=== PATIENT | male | born 1940 | race Caucasian/White ===

== ENCOUNTER → 2016-08-19 | Outpatient (CLI) | payer OTHER ==
[~2016-08-19] MED LIST: AMLODIPINE BESY10 MG PO; ASHWAGANDHA PO; ASPIR-TRIN325 MG PO; BIOTIN10 MG PO; CAPTOPRIL100 MG PO; CORICIDIN HBP1 EACH PO; FLAX OIL1000 MG PO; GARLIC OIL1000 MG PO; GLUCOSAMINE CH1 EAC2 PO; HYDROCHLOROTHIA25 M2 PO; LOPRESSOR100 M1 PO; OLIVE LEAF EXT250 MG PO; PROBIOTIC1 EAC1 PO; SALMON OIL 1,01 EACH PO; SUPER B COMPLE150 MG PO; VITAMIN E400 UNI2 PO
== END ==
LOC: RAD 12:36 → CAT 12:36
DX: K46.9 Unspecified abdominal hernia without obstruction or gangrene (principal); N20.0 Calculus of kidney; K76.0 Fatty (change of) liver, not elsewhere classified

== ENCOUNTER 2016-10-07 05:34 | Inpatient (IN) | payer OTHER ==
[~2016-10-07] VITALS: Ht 165.1 cm; Wt 93.4 kg
--- NOTE | ~2016-10-07 | EKG ---
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1940 Requested By: Nehemiah Castrejon Order Number: [id number] MD: Brijesh Haro Measurements Intervals [place] Rate: 77 P: 47 CT: 161 QRS: 21 QRSD: 93 T: -10 QT: 398 QTc: 451 Interpretive Statements Sinus rhythm Borderline repolarization abnormality Compared to ECG 04/19/2016 10:40:33 Sinus tachycardia no longer present Electronically Signed On 10-09-2016 10:50:13 CDT by Brijesh Haro [email or web address] <ELECTRONICALLY SIGNED> By: Brijesh Haro MD, [facility] 10/09/16 1050 01 01 Brijesh Haro MD, [facility] /EPI
--- NOTE | ~2016-10-07 | O ---
[facility] [place] [address] OPERATIVE REPORT Name: JULIETTE RUBIN Room #: 456-P [facility] IN M.R.#: [id number] Admission: 10/07/16 Attend Phys: Yomaira Jenkins MD, Discharge: Date of : 44 Report #: [id number] THIS REPORT FOR: //name// CC: Bob Jenkins DATE OF SERVICE: 10/07/2016 PREOPERATIVE DIAGNOSES: 1. Right upper quadrant incarcerated recurrent incisional ventral hernia. 2. Gastroesophageal reflux disease. 3. Hypertension. 4. Dyspnea on exertion. 5. Obesity with a body mass index of 31.95. POSTOPERATIVE DIAGNOSES: 1. Right upper quadrant incarcerated recurrent incisional ventral hernia. 2. Right chest wall incarcerated lung hernia. 3. Gastroesophageal reflux disease. 4. Hypertension. 5. Dyspnea on exertion. 6. Ischemic abdominal wall tissue. 7. Obesity with a body mass index of 31.95. PROCEDURES PERFORMED: 1. Exploratory laparotomy. 2. Extensive lysis of adhesions lasting 97 minutes. 3. Complex abdominal wall reconstruction with open repair of an incarcerated recurrent incisional ventral hernia of the right upper abdominal wall with mesh. 4. Open repair of a right chest wall/lung hernia with mesh. 5. Unilateral component separation of the abdominal wall on the right. 6. Debridement of ischemic/nonviable abdominal wall tissue. 7. Adjacent tissue transfer of the anterior abdominal wall for appropriate soft tissue coverage, ultimately measuring 26 x 22 cm in dimension (572 square cm). 8. This is a modifier 22 procedure for extreme difficulty of procedure taking into account greater than an hour and half lysis of adhesions as well as 2 separate discrete hernias in the right upper quadrant, one of the abdominal wall musculature and the second cephalad to that where the patient underwent a prior rib resection with herniation of lung through the defect. This was significantly difficult and caused the total operative time to be greater than 3-1/2 hours as opposed to the expected 60-90 minute procedure and was done in a patient with obesity and a BMI of greater than 30. SURGEON: Yomaira Jenkins MD FEATHER SHAPER: Jerome Gold MD [address] [address] OPERATIVE REPORT Name: JULIETTE RUBIN Room #: 456-P [facility] IN [facility]#: [id number] Admission: 10/07/16 Attend Phys: Yomaira Jenkins MD, Discharge: Date of : 44 Report #: [id number] ANESTHESIA: General endotracheal anesthesia. ESTIMATED BLOOD LOSS: Minimal (less than 20 mL). COMPLICATIONS: None appreciated. SPECIMENS: Ischemic abdominal wall tissue to pathology. INDICATIONS: The patient is a 76-year-old obese male who underwent a complex chest wall and upper abdominal wall hernia repair in April 2016. The patient's hernias were repaired with biologic mesh at that time and unbeknownst to the patient, he underwent 2 rib resections from the right lateral chest wall at the time of his prior operation. Since that time, he has had recurrent bulging of the right upper abdominal wall and underwent a CT scan of the chest and upper abdomen, which showed herniation of colon as well as possibly inferior lung through the respective hernia defects. As such, indication was for the above mentioned procedures today for definitive surgical care. PROCEDURE: After explaining the risks, benefits and alternatives of the procedure with the patient in detail in the preoperative holding area and obtaining written consent, the patient was brought to the operating room and placed supine on the operating room table. After conducting a thorough time-out procedure, verifying correct patient and procedure, the patient was given general endotracheal anesthesia. Once adequate anesthesia was obtained, SCDs were placed on the patient's bilateral lower extremities and he was given a preoperative dose of antibiotics in line with the SCIP protocol. The patient was then prepped and draped in the standard surgical sterile fashion after positioning him with a bump onto the right lateral flank for exposure. A #10 bladed scalpel was now used to create a curvilinear incision following his prior incision site from the right lateral chest wall, anterior over the right upper quadrant. I did carry this incision site 5 cm more medial as his palpable defect warranted a slightly larger incision in this direction. Electrocautery was used to carry this all down through skin and subcutaneous tissues to ensure hemostasis. Once I arrived upon the right upper quadrant abdominal wall musculature, he had an easily palpable hernia defect incarcerated with colon. I was able to gently free these adhesions using electrocautery and continued my lysis of adhesions, which ultimately lasted 97 minutes in duration to both free the colon from the incarcerated defect, open the right upper quadrant incision at the fascial level as well as free the right lower lobe from its adhesions. It should be noted the pleura was intact and was never violated. Once I had opened the entirety of the wound, I was able to evaluate the defects further. The patient's fascia and prior hernia sac showed nonviable ischemic tissue that was resected through a thorough debridement with electrocautery and was passed off the field. Evaluation of the lung hernia first showed two separate ribs were resected with attempts at bridging these with a plastic plate that had come [address] [address] OPERATIVE REPORT Name: JULIETTE RUBIN Room #: 456-P [facility] IN [place]#: [id number] Admission: 10/07/16 Attend Phys: Yomaira Jenkins MD, Discharge: Date of : 44 Report #: [id number] loose and was unsuccessful. The biologic mesh did have good integration, however. I now proceeded to repair this using a running #1 PDS suture to close the defect after creating significantly large flaps throughout the right lateral chest wall and right upper abdomen. These flaps were made with electrocautery staying right along the level of the fascia to elevate the subcutaneous tissues off of the muscle and fascia for appropriate closure and mesh buttressing. Now that I had created these large flaps and sutured closed the lung hernia defect, attention was turned towards the incisional ventral hernia component, which resided several centimeters inferior and more medial. Now that I had cleaned off the abdominal wall, attempts at reapproximating the fascial edges were done; however, this was under significant tension due to being in a subcostal location. I therefore performed an unilateral component separation of the external oblique aponeurosis by scoring the right rectus muscle longitudinally along the lateral border of the rectus abdominis muscle for as long as possible through the wound exposed via our large flaps. I was now able to attain a fascial reapproximation that was not under significant tension, and proceeded to close the fascial defect, recurrent incisional hernia with a running #1 PDS suture in standard fashion. Once I had closed this defect, I proceeded to repair the anterior fascial defect with an additional running #1 PDS suture to give us both the posterior and anterior repair. Attention was now turned towards buttressing this repair with a mesh. As this was not infected and we did not enter bowel or the respiratory tract in any way, I elected to buttress both recurrent incisional hernias with 1 piece of synthetic mesh. It should also be noted that whenever we were in the right lung space prior to closing, we had anesthesia to give a very big breath prior to closing the defect to prevent pneumothorax formation. I selected a piece of ProGrip mesh measuring 10 x 15 cm in dimension. This gave us excellent overlap outside of both suture repairs of the recurrent incisional hernias. The mesh was positioned appropriately to give us adequate overlap outside of both hernia defects and was anchored into position at several locations using 0 PDS suture in standard interrupted fashion. The ProGrip mesh gave excellent tissue purchase throughout its placement. I now proceeded to perform an adjacent tissue transfer closure of the anterior abdominal and right chest wolf for soft tissue coverage overlying the synthetic mesh. This was performed by elevating the flaps and making counter incisions internally to allow vascularized pedicles of fat to be rotated medially. I now brought the soft tissue together overlying the mesh and used 3-0 Vicryl in standard interrupted inverted fashion for the deep layers as well as for the dermal layer to hold vascularized tissue overlying the mesh. I then used the Insorb absorbable subcuticular stapler to close the wound at skin level and also apply Dermabond glue to the skin. At the end of the lengthy procedure, all instrument, needle and sponge counts were correct. The patient tolerated the procedure without incident where he was awakened in the operating room, [address] [address] OPERATIVE REPORT Name: JULIETTE RUBIN Room #: 456-P [facility] IN .R.#: [id number] Admission: 10/07/16 Attend Phys: Yomaira Jenkins MD, Discharge: Date of : 44 Report #: [id number] transitioned to the recovery room in stable condition with no apparent complications. <ELECTRONICALLY SIGNED> By: Yomaira Jenkins MD, FACS 10/10/16 1737 1605 1706 Yomaira Jenkins MD, FACS /nt
--- NOTE | ~2016-10-07 | S ---
[facility] [place] [address] SURGICAL PATH RPT PROCEDURE Name: RAKAN RUBIN Room #: 533-P ADM IN M.R.#: [id number] Admission: 10/07/16 Date of : 44 Discharge: Report #: [id number] Path Case #: [id number] PATHOLOGY REPORT COLLECTION DATE: 10/07/2016 RECEIVED DATE: 10/10/2016 SUBMITTING PHYS: Dr. Yomaira Jenkins OTHER PHYS: Dr. Jerome Elmore SPECIMEN(S) RECEIVED: A.Hernia contents B.Foreign body * * * * * * * * * * * * FINAL DIAGNOSIS: A. Fibrovascular and fibroadipose connective tissue, hernia contents, repair: - Congestion as well as moderate chronic inflammation, compatible with reactive changes. B. Foreign body, removal: - Rubber-like material and clear plastic material, consistent with foreign body (gross exam only). (IUV:mml; 10/12/2016) PATHOLOGIST: Olivia Brian M.D. REPORT ELECTRONICALLY SIGNED BY: Olivia Brian M.D. DATE/TIME: 10/12/2016 16:22 * * * * * * * * * * * * GROSS PATHOLOGY: A. Received in formalin labeled "Rakan Best, hernia contents," are multiple pieces of fibroadipose tissue admixed with fibromembranous tissue measuring 5.2 x 3.8 x 1.6 cm. No nodules or lesions are identified. Elementary Secretary tissue is submitted in cassette A1. B. The specimen is received in formalin labeled "Rakan Best, foreign body". Received is a segment of pale rodrigez rubbery material measuring 2.3 x 1.2 x 0.3 cm and totally submitted segment of firm clear plastic measuring 1.3 x 1.0 x 0.2 cm. A gross photograph is taken. Sections are not submitted. (CAA; 10/11/2016) CLINICAL HISTORY: Recurrent ventral hernia [facility] [place] [address] SURGICAL PATH RPT PROCEDURE Name: RAKAN RUBIN Room #: 533-[facility] IN ..#: [id number] Admission: 10/07/16 Date of : 44 Discharge: Report #: [id number] Path Case #: [id number] INITIAL CPT CODE(S): A; 02748 B; 80499 Professional services performed by [facility] at [address], [place] [address] Technical services performed by [facility] at [address] [place] [address], [address], [place] [address]. [facility] [place] [address] PHONE: [phone] DIRECTOR: Pablo Rodríguez M.D. * * * END OF REPORT * * *
[~2016-10-07 05:34] MED LIST changes: +CLARITIN10 MG PO; +PRILOSEC 20 MG20 MG PO; +VITAMIN B COMP1 EACH PO
[2016-10-07 08:43] LABS: CALCIUM 8.7 mg/dL (8.5-10.1); CREATININE 1.4 mg/dL (0.7-1.3); POTASSIUM 3.9 mmol/L (3.5-5.1)
[2016-10-07 10:01] VITALS: BP 137/72
[2016-10-07 13:10] LABS: HEMATOCRIT 41.6 % (42.0-52.0); HEMOGLOBIN 14.1 gm/dL (14.0-18.0); MCH 31.2 pg (26.0-34.0); MCHC 33.8 g/dL (28.0-37.0); MCV 92.3 fL (80.0-100.0); RBC 4.51 mil/uL (4.50-6.00); RDW 14.1 % (10.5-14.5); WBC 5.7 thou/uL (4.0-11.0)
[2016-10-07 13:12] LABS: APTT 27.3 Seconds (24.5-32.8); PROTIME 10.4 Seconds (9.3-11.4)
[2016-10-07 20:26] VITALS: BP 142/79
[2016-10-07 22:12] VITALS: BP 136/72
[2016-10-07 22:35] VITALS: BP 135/77
[2016-10-08] VITALS (7 sets, daily range): BP systolic 122–155; BP diastolic 70–95
[2016-10-08 06:17] LABS: HEMATOCRIT 39.1 % (42.0-52.0); HEMOGLOBIN 13.2 gm/dL (14.0-18.0); MCH 31.4 pg (26.0-34.0); MCHC 33.8 g/dL (28.0-37.0); RBC 4.21 mil/uL (4.50-6.00); RDW 14.3 % (10.5-14.5); WBC 10.2 thou/uL (4.0-11.0)
[2016-10-08 06:24] LABS: CALCIUM 8.9 mg/dL (8.5-10.1); CREATININE 1.4 mg/dL (0.7-1.3); POTASSIUM 4.2 mmol/L (3.5-5.1)
[2016-10-09 03:57] VITALS: BP 141/81
[2016-10-09 06:51] LABS: HEMATOCRIT 36.8 % (42.0-52.0); HEMOGLOBIN 12.6 gm/dL (14.0-18.0); MCH 31.4 pg (26.0-34.0); MCHC 34.2 g/dL (28.0-37.0); MCV 91.9 fL (80.0-100.0); PLATELET COUNT 148 thou/uL (150-400); RDW 14.3 % (10.5-14.5); WBC 9.5 thou/uL (4.0-11.0)
[2016-10-09 06:52] LABS: MANUAL DIFF YES
[2016-10-09 07:03] LABS: CALCIUM 8.3 mg/dL (8.5-10.1); CREATININE 1.4 mg/dL (0.7-1.3); POTASSIUM 3.7 mmol/L (3.5-5.1)
[2016-10-09 07:52] VITALS: BP 151/80
[2016-10-09 10:28] LABS: ABSOLUTE NEUTROPHILS 6.7 thou/uL (1.4-8.2); ANISOCYTOSIS SLIGHT; TOTAL CELL COUNT 100
[2016-10-09 13:01] VITALS: BP 139/78
[2016-10-09 19:24] VITALS: BP 141/83
[2016-10-10 03:41] VITALS: BP 131/71
[2016-10-10 04:47] LABS: HEMATOCRIT 38.6 % (42.0-52.0); MCH 31.2 pg (26.0-34.0); MCHC 33.6 g/dL (28.0-37.0); MCV 92.9 fL (80.0-100.0); PLATELET COUNT 148 thou/uL (150-400); RBC 4.16 mil/uL (4.50-6.00); WBC 8.3 thou/uL (4.0-11.0)
[2016-10-10 04:59] LABS: MANUAL DIFF YES
[2016-10-10 05:04] LABS: CALCIUM 8.5 mg/dL (8.5-10.1); CREATININE 1.3 mg/dL (0.7-1.3); POTASSIUM 3.7 mmol/L (3.5-5.1)
[2016-10-10 07:23] VITALS: BP 147/80
[2016-10-10 08:54] LABS: ABSOLUTE NEUTROPHILS 4.6 thou/uL (1.4-8.2); PLATELET ESTIMATE NORMAL; TOTAL CELL COUNT 100
[2016-10-10 10:59] VITALS: BP 145/85
[2016-10-10 15:02] VITALS: BP 145/80
[2016-10-10 19:22] VITALS: BP 131/70
[2016-10-11 05:27] VITALS: BP 141/72
[2016-10-11 08:00] VITALS: BP 111/75
[2016-10-11 16:17] VITALS: BP 148/72
[2016-10-11 19:22] VITALS: BP 130/77
[2016-10-12 04:34] VITALS: BP 129/78
[2016-10-12 07:30] VITALS: BP 120/78
[2016-10-12 15:11] VITALS: BP 127/58
[2016-10-12 19:10] VITALS: BP 153/68
[2016-10-13 06:22] VITALS: BP 116/58
[2016-10-13] MEDS ORDERED: HYDROCODON-ACE1 EAC7 PO (08:01)
[2016-10-13 08:27] VITALS: BP 135/58
[2016-10-13 17:16] VITALS: BP 135/58
== END 2016-10-13 10:20 | disposition home or self-care (01) | DRG 337 ==
LOC: TBA 05:34 → 4W 05:34 → PRE 09:58 → 4W 20:10 → 5S 10-12 10:21
PROVIDERS: Anesthesiology; Surgery
PROC: 0JX80ZZ Transfer Abdomen Subcutaneous Tissue and Fascia, Open Approach (ICD-10-PCS; principal; 2016-10-07)
PROC: 0WUF0JZ Supplement Abdominal Wall with Synthetic Substitute, Open Approach (ICD-10-PCS; principal; 2016-10-07)
PROC: 0DNF0ZZ Release Right Large Intestine, Open Approach (ICD-10-PCS; principal; 2016-10-07)
DX: K43.0 Incisional hernia with obstruction, without gangrene (principal); K21.9 Gastro-esophageal reflux disease without esophagitis; I10 Essential (primary) hypertension; E66.9 Obesity, unspecified; Z68.34 Body mass index [BMI] 34.0-34.9, adult
CPT/HCPCS: 10047; 10785; 50010; 50093; 50101; 50386; 50455; 50648; 54026; 54118; 54169; 56524; 56525; 56526; 56530; 57092; 62110; 62900; 70005

== ENCOUNTER → 2017-05-03 | Outpatient (CLI) | payer OTHER ==
[~2017-05-03] MED LIST changes: +HYDROCODON-ACE1 EAC7 PO
== END ==
LOC: CAT 15:33
DX: K40.90 Unilateral inguinal hernia, without obstruction or gangrene, not specified as recurrent (principal); K44.9 Diaphragmatic hernia without obstruction or gangrene; I70.0 Atherosclerosis of aorta; M47.895 Other spondylosis, thoracolumbar region; N20.0 Calculus of kidney; I10 Essential (primary) hypertension; Z98.890 Other specified postprocedural states

== ENCOUNTER → 2018-12-25 | Outpatient (CLI) | payer OTHER | LOC: RAD 09:28 | DX: M47.814 Spondylosis without myelopathy or radiculopathy, thoracic region (principal) ==

== ENCOUNTER → 2019-01-07 | Outpatient (CLI) | payer OTHER ==
[2019-01-07 10:08] LABS: FOLIC ACID 13.3 ng/mL (8.6-58.9); TSH 3.575 uIU/mL (0.358-3.740)
[2019-01-09 19:10] LABS: ANA INTERPRETATION Negative (())
== END ==
LOC: MRI 08:46
PROVIDERS: Psychiatry & Neurology Neurology
DX: S09.90XS Unspecified injury of head, sequela (principal); G31.84 Mild cognitive impairment of uncertain or unknown etiology; G25.0 Essential tremor; G47.33 Obstructive sleep apnea (adult) (pediatric); G31.9 Degenerative disease of nervous system, unspecified; R90.82 White matter disease, unspecified; X58.XXXS Exposure to other specified factors, sequela

== ENCOUNTER → 2019-01-08 | Outpatient (CLI) | payer OTHER ==
--- NOTE | 2019-01-18 14:17 | EEG ---
[facility] [place] [address] ELECTROENCEPHALOGRAM Name: JULIETTE RUBIN Room #: REG [facility].#: [id number] Admission: 01/08/19 Attend Phys: Kevin Garcia MD Discharge: Date of : 44 Report #: [id number] THIS REPORT FOR: //name// CC: Bob Garcia This patient is being evaluated for memory problems. The EEG was done by placing the electrode by standard 10-20 system of electrode placement. Both referential and sequential montages were used for recording. Background activity in this patient's EEG is about 9 Hz and 30 microvolt. Photic stimulation was unremarkable. The patient became drowsy and that is associated with bilateral slowing and vertex sharp waves. Throughout the record, no active epileptiform activity was noticed. IMPRESSION: This patient's EEG is intermixed with theta range slowing on both sides. That is a nonspecific finding. Otherwise, the EEG was unremarkable. <ELECTRONICALLY SIGNED> By: Prabhakar Patiño MD 01/18/19 1417 1808 1822 Prabhakar Patiño MD /nt
== END ==
LOC: NEURO 09:44
DX: G31.84 Mild cognitive impairment of uncertain or unknown etiology (principal); G25.0 Essential tremor; S09.90XS Unspecified injury of head, sequela

== ENCOUNTER → 2019-02-04 | Outpatient (CLI) | payer OTHER | LOC: MRI 11:12 | DX: I77.6 Arteritis, unspecified (principal) ==

== ENCOUNTER → 2019-11-12 | Outpatient (CLI) | payer OTHER ==
--- NOTE | 2019-11-12 11:02 | 2DMMODE ---
[facility] [place] [address] 2 D/M-MODE ECHOCARDIOGRAM Name: CARYNJOSHUABerto Dickey Room #: REG [facility]#: [id number] Admission: 11/12/19 Attend Phys: Prabhakar Patiño MD Discharge: Date of : 44 Report #: [id number] THIS REPORT FOR: cc: Bob Elmore MD, David W. MD Lammoglia, Francisco J. MD ~ APPROVED REPORT Study performed: 11/12/2019 10:22:12 EXAM: Comprehensive 2D, Doppler, and color-flow Echocardiogram Patient Location: Out-Patient Status: routine BSA: 1.98 HR: 72 bpm Other Information Study Quality: Good Indications CVA Echo Enhancing Agent Indication: Rule out Shunt Agent(s) / Amount(s) Used: Agitated Saline 7 cc 2D Dimensions RVDd: 39.53 mm IVSd: 10.58 (7-11mm) LVOT Diam: 20.36 (18-24mm) LVDd: 48.52 mm PWd: 10.16 (7-11mm) Ascending Ao: 34.85 (22-36mm) LVDs: 24.67 (25-40mm) Aortic Root: 33.82 mm Volumes Left Atrial Volume (Systole) Single Plane 4CH: 53.43 mL Single Plane 2CH: 76.02 mL LA ESV Index: 36.00 mL/m2 Aortic Valve AoV Peak Roc.: 1.37 m/s AO Peak Gr.: 7.51 mmHg LVOT Max P.26 mmHg [facility] [employer] [address] [place] [address] 2 D/M-MODE ECHOCARDIOGRAM Name: JULIETTE RUBIN Room #: [facility]#: [id number] Admission: 11/12/19 Attend Phys: Prabhakar Patiño, Discharge: Date of : 44 Report #: [id number] LVOT Max V: 0.90 m/s HARRIET Vmax: 2.14 cm2 Mitral Valve E/A Ratio: 1.4 MV Decel. Time: 166.26 ms MV E Max Roc.: 0.98 m/s MV A Roc.: 0.71 m/s MV PHT: 48.22 ms IVRT: 72.66 ms Pulmonary Valve PV Peak Roc.: 0.89 m/s PV Peak Gr.: 3.15 mmHg Pulmonary Vein P Vein S: 0.67 m/s P Vein A: 0.29 m/s P Vein D: 0.57 m/s P Vein A Dur.: 107.3 msec P Vein S/D Ratio: 1.18 Tricuspid Valve TR Peak Roc.: 2.36 m/s RAP Estimate: 5.00 mmHg TR Peak Gr.: 22.27 mmHg PA Pressure: 27.00 mmHg Left Ventricle The left ventricle is normal size. There is normal LV segmental wall motion. There is normal left ventricular wall thickness. Left ventricular systolic function is normal. LVEF is 55-60%. Moderate diastolic dysfunction is present (pseudonormal filling). Right Ventricle The right ventricle is normal size. The right ventricular systolic function is normal. Atria Left atrium is mildly dilated. No shunting noted with contrast bubble injection. The right atrium size is normal. Aortic Valve The aortic valve is normal in structure. Trace aortic regurgitation. There is no aortic valvular stenosis. Mitral Valve The mitral valve is normal in structure. Trace mitral regurgitation. No evidence of mitral valve stenosis. [facility] [place] [address] 2 D/M-MODE ECHOCARDIOGRAM Name: JULIETTE RUBIN Room #: REG [facility]#: [id number] Admission: 11/12/19 Attend Phys: Prabhakar Patiño, Discharge: Date of : 44 Report #: [id number] Tricuspid Valve The tricuspid valve is normal in structure. Trace tricuspid regurgitation. Estimated PAP is 25-30mmHg. Pulmonic Valve The pulmonary valve is normal in structure. Trace pulmonic regurgitation. Great Vessels The aortic root is normal in size. The ascending aorta is normal in size. IVC is normal in size and collapses >50% with inspiration. Pericardium There is no pericardial effusion. <Conclusion> The left ventricle is normal size. LVEF is 55-60%. Left atrium is mildly dilated. The aortic valve is normal in structure. Trace aortic regurgitation. The mitral valve is normal in structure. Trace mitral regurgitation. The tricuspid valve is normal in structure. Trace tricuspid regurgitation. Estimated PAP is 25-30mmHg. The pulmonary valve is normal in structure. Trace pulmonic regurgitation. There is no pericardial effusion. No shunting noted with contrast bubble injection. <ELECTRONICALLY SIGNED> By: Kalyan Olvera MD 11/12/19 1102 01 01 Kalyan Olvera MD /INF
== END ==
LOC: CV 09:42
PROVIDERS: ATTEND Psychiatry & Neurology Neuromuscular Medicine
DX: I63.9 Cerebral infarction, unspecified (principal)